=== PATIENT | male | born 1970 | race Caucasian/White ===

== ENCOUNTER 2023-10-30 16:57 | Emergency (ER) | payer SELFPAY ==
[~2023-10-30] VITALS: Ht 193 cm; Wt 205.0 kg
[2023-10-30] MEDS ORDERED: IBUP-1455 PO (17:16)
[2023-10-30] MEDS ORDERED: CEPH250C PO (17:16)
[2023-10-30 17:31] VITALS: BP 146/83; PULSE 98; RESP 18; TEMP 98.9; O2SAT 95
== END 2023-10-30 17:33 | disposition home or self-care (01) ==
LOC: ER 16:59
DX: S01.01XA Laceration without foreign body of scalp, initial encounter (principal); Z88.1 Allergy status to other antibiotic agents; W22.8XXA Striking against or struck by other objects, initial encounter; Y93.72 Activity, wrestling; Y92.89 Other specified places as the place of occurrence of the external cause; Y99.8 Other external cause status
CPT/HCPCS: 12002